=== PATIENT | male | born 1995 ===

== ENCOUNTER 2019-12-17 12:21 | Emergency (ER) | payer BC, SELFPAY ==
[2019-12-17 12:44] VITALS: BP 130/75; PULSE 93; RESP 18; TEMP 37; O2SAT 100
--- NOTE | 2019-12-17 13:07 | ED.GENADULT ---
HPI - General Adult General Chief complaint: Upper Respiratory Infection Stated complaint: nausea and sore throat Time Seen by Provider: 12/17/19 13:07 Source: patient and RN notes reviewed Mode of arrival: ambulatory Limitations: no limitations History of Present Illness HPI narrative: This is a 24 years old male presented office to obtain a work excuse. States, he had bad headache last night with stiff neck. Pain is still there this morning; so he calls off work. Admits to history of chronic fatigue from [facility] (two years ago). Denies fever, vomiting, diarrhea or congestion. Denies sick contact. Denies head trauma/injury. Immunizations up-to-date. He also states that he just saw his PCP about five days with normal lab works. Related Data Home Medications Medication Instructions Recorded Confirmed No Home Medications 12/17/19 12/17/19 Allergies Allergy/AdvReac Type Severity Reaction Status Date / Time amoxicillin Allergy Unknown Rash Verified 12/17/19 12:53 floxacillin Allergy Rash Verified 12/17/19 12:55 Quinolones Allergy Rash Verified 12/17/19 12:56 Review of Systems Review of Systems: Narrative: CONSTITUTIONAL: Denies fever, chills EYES: Denies visual change/blurry or photosensitivity. ENT: Denies congestion. CARDIOVASCULAR: Denies chest pain, palpitation RESPIRATORY: Denies cough GASTROINTESTINAL: Reports intermittent abdominal pain contribute to mono history GENITOURINARY: Denies urinary symptoms or discharge SKIN: Denies rash MUSCULOSKELETAL: Denies acute back pain. Reports neck sore NEUROLOGIC: Denies lightheaded. Reports headache. Denies history of Migraine. [facility] Past Medical History Medical History (Updated 12/17/19 @ 13:21 by MEKHI Segovia) History of mononucleosis Social History Social History Smoking status: Never smoker Second hand tobacco smoke exposure: Yes Alcohol intake: never Comments At time of signature, I agree with nursing past medical, surgical, social and family history. There is no relevant family history pertinent to the presenting complaint. Exam Narrative: Exam Narrative: GENERAL: This is a well-nourished, well-developed patient, in no apparent distress. EYES: PERRL. EMOI. Sclera clear/white. Vision is grossly intact. EARS: External ears normal, auditory canals clear and without drainage, TMs normal without perforation. Hearing grossly intact. NOSE: External nose normal with no obvious nasal discharge, nares without redness, no rhinorrhea. THROAT: Mucous membranes moist, posterior pharynx clear. NECK: Neck supple, non-tender without lymphadenopathy, masses or thyromegaly. Patient able to do chin to chest with normal range of motion. No meningeal signs. Negative Spurling test. CARDIOVASCULAR: Regular rate and rhythm without murmurs, gallops, or rubs. RESPIRATORY: Clear to auscultation. Breath sounds equal bilaterally. No wheezes, rales, or rhonchi. GASTROINTESTINAL: Abdomen soft, non-tender, nondistended. Bowel sounds are active. No hepato-splenomegaly, or palpable masses. No guarding. SKIN: warm, intact with no suspicious lesions or rash, good texture and turgor. NEURO: awake, alert, and oriented to person, place and time. There were no obvious focal neurologic abnormalities. Steady gait [place] Coma Scale Eye Opening: Spontaneous 4 [place] Coma Scale Motor: Obeys Commands 6 [place] Coma Scale Verbal: Oriented 5 Course Vital Signs Vital signs: Vital Signs Temperature 98.6 F 12/17/19 12:44 Pulse Rate 93 12/17/19 12:44 Respiratory Rate 18 12/17/19 12:44 Blood Pressure 130/75 12/17/19 12:44 Pulse Oximetry 100 12/17/19 12:44 Temperature 98.6 F 12/17/19 12:44 Pulse Rate 93 12/17/19 12:44 Respiratory Rate 18 12/17/19 12:44 Blood Pressure 130/75 12/17/19 12:44 Pulse Oximetry 100 12/17/19 12:44 Medical Decision Making MDM Narrative Medical decision making na
== END 2019-12-17 13:25 | disposition home or self-care (01) ==
PROVIDERS: Emergency Provider Nurse Practitioner; PCP Internal Medicine
DX: R51 Headache (principal)
CPT/HCPCS: 99211; G0463